=== PATIENT | female | born 1995 | race Caucasian/White ===

== ENCOUNTER 2017-11-26 00:01 | Inpatient (IN) | payer OTHER ==
[~2017-11-26 00:01] MED LIST: Acetaminophen 325 MG Tab PO PRN; Carboprost Tromethamine 250 MCG/1 ML Amp IM PRN; Lactated Ringers 1,000 ML IV SCH; Lactated Ringers 500 ML IV ONE; Lidocaine 1% 30 ML SDV INJECT PRN; Methylergonovine 0.2 MG/1 ML Amp IM PRN; Misoprostol 400 MCG (4 X 100 MCG TAB) RECTAL PRN; Misoprostol 50 MCG (1/2 of 100 MCG) Tab VAG PRN; Ondansetron 4 MG/2 ML SDV IV PRN; Oxytocin/Normal Saline 30 UNIT/500 ML BAG IV SCH; Sodium Chloride 0.9% 10 ML Syringe FLUSH PRN; Tranexamic Acid 1,000 MG in Sodium Chloride 0.9% 100 ML IV PRN
[2017-11-26] MEDS ORDERED: Acetaminophen 325 MG Tab PO PRN (01:01)
[2017-11-26] MEDS ORDERED: Carboprost Tromethamine 250 MCG/1 ML Amp IM PRN (01:02)
[2017-11-26] MEDS ORDERED: Methylergonovine 0.2 MG/1 ML Amp IM PRN (01:03)
[2017-11-26] MEDS ORDERED: Misoprostol 400 MCG (4 X 100 MCG TAB) RECTAL PRN (01:03)
[2017-11-26] MEDS ORDERED: Lidocaine 1% 30 ML SDV INJECT PRN (01:03)
[2017-11-26] MEDS ORDERED: Ondansetron 4 MG/2 ML SDV IV PRN (01:03)
[2017-11-26] MEDS ORDERED: Tranexamic Acid 1,000 MG in Sodium Chloride 0.9% 100 ML IV PRN (01:04)
[2017-11-26] MEDS ORDERED: Sodium Chloride 0.9% 10 ML Syringe FLUSH PRN ×2 (01:04→20:05)
[2017-11-26] MEDS ORDERED: Lactated Ringers 1,000 ML IV SCH (01:15)
[2017-11-26] MEDS ORDERED: Oxytocin/Normal Saline 30 UNIT/500 ML BAG IV SCH (01:15)
[2017-11-26] MEDS: Misoprostol 50 MCG (1/2 of 100 MCG) Tab VAG PRN ×2 (01:17→05:21)
[2017-11-26] MEDS ORDERED: Misoprostol 25 MCG (1/4 of 100 MCG) Tab VAG PRN (09:30)
[2017-11-26] MEDS ORDERED: Nalbuphine 10 MG/1 ML Vial IM ONE (18:07)
[2017-11-26] MEDS ORDERED: Zolpidem 5 MG Tab PO PRN (19:54)
[2017-11-26] MEDS ORDERED: Simethicone 80 MG Tab.Chew PO PRN (19:54)
[2017-11-26] MEDS ORDERED: Benzocaine/Menthol 20%-0.5% Spray 56 GM Canister TOP PRN (19:54)
[2017-11-26] MEDS ORDERED: Oxytocin 10 Units/1 ML SDV IM PRN (19:54)
[2017-11-26] MEDS: Ibuprofen 800 MG Tab PO PRN (22:16)
[2017-11-26] MEDS: Docusate Sodium 100 MG Cap PO PRN (22:16)
[2017-11-27] MEDS: Ibuprofen 800 MG Tab PO PRN ×2 (06:27→17:04)
[2017-11-27] MEDS: Prenatal Multivitamin with Calcium/Folic Acid/Iron Tab PO SCH (08:18)
[2017-11-27] MEDS: Docusate Sodium 100 MG Cap PO PRN (08:19)
--- NOTE | 2017-11-27 09:31 | PN ---
DATE: 11/26/2017 SUBJECTIVE: The patient still feels her contractions. Unable to receive her 4th dose of Cytotec because she was having too many contractions. She has been up walking around. OBJECTIVE: heart tones in the 150s and felt to be reassuring. Tocometer revealed contractions on average every 2 minutes or even closer together. Vaginal exam reveals her to be 3 cm, 85% to 90% effaced, -1 station, vertex suspected, and artificial rupture of membranes done after discussion with the patient yielding copious amounts of clear fluid. ASSESSMENT/PLAN: 1. Intrauterine at 39 and 2/7 weeks confirmed with 16 and 4/7 week ultrasound. 2. Pre-gestational diabetes mellitus, on medicines. 3. Group B streptococcus negative. 4. 1, para 0 with serial blood sugars being checked, all less than or equal to 100 at this point in time. We will continue to follow clinically and closely. I did discuss the potential for Pitocin augmentation versus continue to follow after artificial rupture of membranes and we will follow at this point in time. The patient understands and agrees with the above treatment plan. [facility] /[id number]
--- NOTE | 2017-11-27 09:34 | PN ---
DATE: 11/26/2017 SUBJECTIVE: The patient has been feeling her contractions more. OBJECTIVE: heart tones in the 130s. Tocometer reveals contractions on average every 2 minutes. Vaginal exam reveals her to be complete and started pushing with some descent noted. ASSESSMENT AND PLAN: Second stage of labor in a 39-2/7 weeks, 1, para 0, group B Streptococcus negative with pregestational diabetes mellitus, on medications with sugars being under control, all less than or equal to 100 since admission earlier this morning after midnight. We will continue to follow clinically and closely. Room is being set up by the nurses, and we will work on pushing at this time. The patient understands and agrees with the above treatment plan. [facility] /[id number]
--- NOTE | 2017-11-27 10:13 | DEL ---
DATE: 11/26/2017 PREOPERATIVE DIAGNOSES: 1. Intrauterine at 39 and 2/7 weeks, confirmed by 16 and 4/7 weeks' ultrasound. 2. Pregestational diabetes mellitus, on medications, none needed in the hospital. All sugars less than or equal to 100 up to delivery. 3. Group B Streptococcus negative. 4. 1, para 0. POSTOPERATIVE DIAGNOSES: 1. Intrauterine at 39 and 2/7 weeks, confirmed by 16 and 4/7 weeks' ultrasound, delivered. 2. Pregestational diabetes mellitus, on medications, none needed in the hospital. All sugars less than or equal to 100 up to delivery. 3. Group B Streptococcus negative. 4. 1, para 0. 5. hemorrhage with estimated blood loss 500 mL. 6. Abnormal placenta with a band of calcification 2 to 3 cm from borders with trailing membranes of approximately 15 cm in length requiring gentle manipulation to deliver. 7. Second-degree perineal laceration, repaired. PROCEDURES PERFORMED: NST followed by Cytotec x3, artificial rupture of membranes, and then subsequent spontaneous vaginal delivery with second-degree perineal laceration, repaired. POSTING MACHINE OPERATOR: None. ANESTHESIA/ANALGESIA: The patient did receive some Nubain in the first stage of labor. She also received 1% lidocaine without epinephrine, approximately 10 mL for local repair with good anesthetic result. ESTIMATED BLOOD LOSS: 500 mL. FINDINGS: 1. Male. scores 9 and 9. Weight 8 pounds 6 ounces. 2. Abnormal placenta with calcification 2 to 3 cm from the border, almost completely around the placenta with trailing membranes approximately 15 cm requiring gentle manipulation for delivery. SUMMARY OF EVENTS: The patient is a 22-year-old, G1, P0, intrauterine at 39 and 2/7 weeks confirmed by 16 and 4/7 weeks' ultrasound with pregestational diabetes mellitus, requiring medications including insulin and metformin prior to admission. She subsequently underwent NST followed by Cytotec x3. Sugars were followed closely. All less than or equal to 100. No need for meds elicited. She had GBS negative status. She received Cytotec x3, then with subsequent artificial rupture of membranes, then went from 4 to 5 cm to the second stage of labor over a few hours. She was subsequently found to be complete. I was called to the room, donned sterile gown and gloves, and with the patient pushing with contractions, vertex was delivered in CHAIM presentation, followed by anterior and posterior shoulder as well as the rest of the without difficulty. Mouth and nares were suctioned. Cord was doubly clamped and cut and was resuscitated on mother's abdomen. Then, approximately 10 mL of cord blood was obtained for labs. Placenta was not moving with gentle cord pressure. Therefore, second-degree perineal laceration was concentrated on, anesthetized with 1% lidocaine without epinephrine and repaired in usual fashion using 3-0 Vicryl. Attention was then made back to the gentle cord traction and fundal massage, and then subsequently placenta delivered with trailing membranes of approximately 15 cm, gently teased and delivered with ring forceps very slowly while doing fundal massage. These appeared to be intact, and no other evidence of trailing membranes were elicited. placenta to be sent to pathology. Perineum, vagina, and perirectal areas were then examined, noted to have a second-degree perineal laceration that was repaired. Mother and infant are currently stable at the time of dictation. We will check a CBC tomorrow morning and follow clinically and closely for any increase in bleeding or otherwise, and this was discussed with the patient. [facility] /[id number]
--- NOTE | 2017-11-27 10:43 | PN ---
DATE: 11/27/2017 day #1, status post spontaneous vaginal delivery with second-degree perineal laceration, repaired with hemorrhage with an EBL of 500 mL. SUBJECTIVE: The patient is tolerating p.o.'s, ambulating, urinating, and passing flatus. The pain is under control. Bleeding is under control per her. OBJECTIVE: Vital Signs: Blood pressure 96/58, heart rate 69, and temperature 97.8. Lungs: Clear to auscultation bilaterally. Heart: S1 and S2. Regular rate and rhythm. Pelvic: Firm uterus at approximately -1 below umbilicus. Extremities: Trace pedal edema. No calf pain. LABORATORY DATA: White cell count 14.9, hemoglobin 10.3, and platelets 270. Blood sugars have been followed; last one was 88 this morning. ASSESSMENT: 1. day #1, status post spontaneous vaginal delivery with second- degree perineal laceration, repaired. 2. hemorrhage with an estimated blood loss of approximately 500 mL with anemia of acute blood loss. Hemoglobin 10.3. We will start iron along with vitamins. 3. Abnormal placenta with band calcification and trailing membranes. We will send to Pathology. PLAN: Follow clinically and closely. Recheck CBC tomorrow. Possible discharge tomorrow. [facility] /[id number]
--- NOTE | 2017-11-27 11:31 | OBOUT ---
DATE: 11/26/2017 DATE AND TIME OF NST: Date: 11/26/2017. Time: 0030 hours to 0050 hours. REASON FOR NST: 1. Intrauterine at 39 and 2/7 weeks. 2. Pregestational diabetes mellitus, on medicines. 3. Group B Streptococcus negative. 4. 1, para 0. NST INTERPRETATION: During this time period, heart tone baseline is approximately 125, and there are at least two 15 x 15 beat per minute accelerations making this strip reactive. It is also noted to be reassuring. Tocometer reveals essentially 5 contractions, minimally felt by the patient. ASSESSMENT: 1. Nonstress test, reactive and reassuring. 2. Tocometer with contractions, minimally felt by the patient. Blood pressure 139/68, heart rate 75, blood sugar 100. The patient subsequently received Cytotec. For further H and P details, please see Epic, which will be scanned into the chart. Otherwise no immediate changes were noted with plans. Currently, we will be following her sugars and re-evaluate the need for insulin, but at this point in time, there is no need. The patient understands and agrees with the above treatment plan. [facility] /[id number]
[2017-11-28] MEDS: Ibuprofen 800 MG Tab PO PRN (03:46)
[2017-11-28] MEDS: Docusate Sodium 100 MG Cap PO PRN (09:22)
[2017-11-28] MEDS: Prenatal Multivitamin with Calcium/Folic Acid/Iron Tab PO SCH (09:22)
--- NOTE | 2017-11-28 10:50 | DISCH ---
ADMITTING DIAGNOSES: 1. Intrauterine at 39 and 2/7 weeks, confirmed by 16 and 4/7 weeks' ultrasound. 2. Pregestational diabetes mellitus, requiring medication. 3. Group B streptococcus negative. 4. 1, para 0. DISCHARGE DIAGNOSES: 1. Intrauterine at 39 and 2/7 weeks, confirmed by 16 and 4/7 weeks' ultrasound, delivered. 2. Pregestational diabetes mellitus, requiring medication. Sugars under control while in the hospital. No need for medications. 3. Group B streptococcus negative. 4. 1, para 0. 5. hemorrhage with estimated blood loss of 500 mL. 6. Abnormal placenta with band calcification, 2 cm to 3 cm from the border with trailing membranes approximately 15 cm. 7. Second-degree perineal laceration, repaired. 8. Anemia of acute blood loss. Hemoglobin dropping down to 9.9. PROCEDURES PERFORMED: 1. Nonstress test followed by Cytotec x3. 2. Artificial rupture of membranes. 3. Spontaneous vaginal delivery. 4. Second-degree perineal laceration, repaired per Dr. Montalvo. HISTORY OF PRESENT ILLNESS: Please see H and P. SUMMARY OF HOSPITAL COURSE: The patient was admitted on the above date with the above diagnoses, followed clinically and closely. Sugars were followed serially, and no need for medicines were noted. She received some Nubain in the first stage of labor and then went on to have a spontaneous vaginal delivery yielding a male with scores of 9 and 9, weighing 8 pounds 6 ounces (3795 g) with an abnormal placenta that was noted as above with hemorrhage with EBL of 500 mL. Please see delivery note for further details. day #1, please see progress note. day #2, date of discharge; the patient is tolerating p.o.'s, ambulating, urinating, passing flatus, and requesting discharge. PHYSICAL EXAMINATION: Vital Signs: Last set of vitals updated and listed in the chart. Temperature 98.3, heart rate 75, blood pressure 128/79, and respiratory rate 16. Lungs: Clear to auscultation bilaterally. Heart: S1 and S2. Regular rate and rhythm. Abdomen: Firm uterus around the umbilicus. Extremities: No peripheral edema. No calf pain. LABORATORY DATA: White cell count 12.1, hemoglobin 9.9, platelets 232. Last sugar was 79. CONDITION ON DISCHARGE COMPARED TO CONDITION ON ADMISSION: Improved. DISCHARGE INSTRUCTIONS: 1. Diet: Diabetic diet. 2. Activity: No lifting more than 20 pounds. No sit-ups or straining. Pelvic rest for the next 6 weeks with immediate return to fertility was discussed with the patient. Reasons to return or go to the emergency room were discussed with the patient in detail to include, but not limited to temperature greater than 100.4, foul- smelling discharge, red or hot breasts, and increased vaginal bleeding. DISCHARGE MEDICATIONS: 1. [id number] ibuprofen for pain. 2. Iron sulfate 325 b.i.d. x6 weeks. 3. vitamins x6 weeks. FOLLOW UP: Follow up 6 weeks for visit. I did discuss with the patient in the interim the reason to return or go to the emergency room in regard to her as well as the importance of followup and ramifications of not doing so. [facility] /[id number]
== END 2017-11-28 11:00 | disposition home or self-care (01) | DRG 774 ==
LOC: DL.OBCHECK 00:01 → DL.OB 00:02 → OBSVTOIN 20:25
PROVIDERS: ADMIT Family Medicine; ATTEND Family Medicine
PROC: 6A550ZT Pheresis of Cord Blood Stem Cells, Single (ICD-10-PCS; principal; 2017-11-26)
PROC: 0KQM0ZZ Repair Perineum Muscle, Open Approach (ICD-10-PCS; principal; 2017-11-26)
PROC: 10907ZC Drainage of Amniotic Fluid, Therapeutic from Products of Conception, Via Natural or Artificial Opening (ICD-10-PCS; principal; 2017-11-26)
PROC: 10E0XZZ Delivery of Products of Conception, External Approach (ICD-10-PCS; principal; 2017-11-26)
DX: O24.424 Gestational diabetes mellitus in childbirth, insulin controlled (principal); O72.1 Other immediate postpartum hemorrhage; D62 Acute posthemorrhagic anemia; O70.1 Second degree perineal laceration during delivery; Z3A.39 39 weeks gestation of pregnancy; Z37.0 Single live birth; O90.81 Anemia of the puerperium; O43.893 Other placental disorders, third trimester; Z87.891 Personal history of nicotine dependence
CPT/HCPCS: 36415; 59025; 59300; 59409; 82962; 85027; A9270-GY; J2300; J2590; J7120